=== PATIENT | male | born 1970 | race Caucasian/White ===

== ENCOUNTER 2023-05-20 07:46 | Emergency (ER) | payer MEDICAID, OTHER ==
[~2023-05-20] VITALS: Ht 180.3 cm; Wt 87.0 kg
[2023-05-20 07:51] VITALS: O2SAT 95
[2023-05-20] MEDS ORDERED: ONDANSETRON 4MG ODT PO ONE (08:15)
[2023-05-20] MEDS ORDERED: MECLIZINE 12.5MG TABLET PO ONE (08:15)
[2023-05-20] MEDS ORDERED: FAMOTIDINE 20MG/2ML VIAL IV ONE (08:30)
[2023-05-20] MEDS ORDERED: SODIUM CHLORIDE 0.9% 1,000 ML IV ONE (08:30)
[2023-05-20] MEDS ORDERED: ONDANSETRON HCL 4MG/2ML INJ IV ONE (08:30)
[2023-05-20 09:34] LABS: BASOPHILS % 0.3 % (0.0-2.0); EOSINOPHILS % 0.4 % (0.0-5.0); HEMATOCRIT. 39.9 % (42.0-52.0); HEMOGLOBIN. 13.6 g/dL (14.0-18.0); MEAN PLATELET VOLUME 8.9 fl (7.4-10.4); MONOCYTES % 7.3 % (2.0-8.0); PLATELET 197 x1000/uL (130-400); RED BLOOD CELL COUNT 4.69 mill/uL (4.7-6.1)
[2023-05-20 09:43] LABS: CHLORIDE 108 mEq/L (98-107)
[2023-05-20] MEDS ORDERED: MECL-217 MT (11:03)
[2023-05-20] MEDS ORDERED: METOCLOPRAMIDE HCL 10MG/2ML VIAL IV ONE (11:15)
[2023-05-20 11:51] LABS: CLARITY URINE CLEAR (CLEAR); COLOR URINE YELLOW (YELLOW); KETONES URINE NEGATIVE (NEGATIVE); LEUKOCYTE ESTERASE URINE NEGATIVE (NEGATIVE); NITRITE URINE NEGATIVE (NEGATIVE); OCCULT BLOOD URINE NEGATIVE (NEGATIVE); PH URINE 7.5 (4.5-8.0); PROTEIN URINE NEGATIVE (NEGATIVE); SPECIFIC GRAVITY URINE 1.016 (1.005-1.030); UROBILINOGEN URINE 0.2 E.U./dL (0.2-1.0)
[2023-05-20 17:22] VITALS: TEMP 98.7
[2023-05-20 21:06] VITALS: BP 120/78; PULSE 70; RESP 11
== END 2023-05-20 21:52 | disposition short-term general hospital (02) ==
LOC: ER 07:46
DX: R42 Dizziness and giddiness (principal); R11.2 Nausea with vomiting, unspecified; E11.9 Type 2 diabetes mellitus without complications; E78.00 Pure hypercholesterolemia, unspecified
CPT/HCPCS: 80048; 81003; 85025; 84484; 36415; 70450; 96361; 96374; 96375; 99285; J8597; J3490; J2765; J2405; J7030; Z7610 ×4